=== PATIENT | male | born 1945 | race Caucasian/White ===

== ENCOUNTER 2022-08-10 14:32 | Inpatient (IN) ==
[2022-08-10 15:57] LABS: Basophils % 0.2 % (0.0-0.8); Eosinophils # 0.1 10*3/uL (0.0-0.87); Eosinophils % 0.8 % (0.00-10.9); Hematocrit 24.2 VOL% (42.0-52.0); Hemoglobin 8.3 GM/DL (14.0-18.0); Immature Granulocytes % 0.5 %; Immature Granulocytes Absolute 0.04 #; Lymphocytes # 1.5 10*3/uL (1.4-4.0); Lymphocytes % 16.8 % (21.2-54.2); Mean Corpuscular HGB Conc 34.3 GM/DL (32-36); Mean Platelet Volume 10.9 FL (9.6-12.0); Monocytes # 0.6 10*3/uL (0.11-0.8); Monocytes % 6.7 % (1.7-12.7); Platelet Count 160 T/CUMM (130-400); Red Blood Count 2.52 MC/CUMM (3.8-5.5); Red Cell Distribution Width 22.4 % (9.3-17.3); White Blood Count 8.8 T/CUMM (4-12)
[2022-08-10 16:20] LABS: Albumin 1.4 G/DL (3.4-5.0); Bilirubin,Total 10.3 MG/DL (0.20-1.00); Calcium 8.5 MG/DL (8.5-10.1); Osmolality,Calculated 268.4 MOS/KG (273-304); Potassium 3.9 MMOL/L (3.5-5.1); Total Protein 6.4 G/DL (6.4-8.2)
[2022-08-10 17:24] LABS: Bacteria,Urine Occasional /HPF (Few); Bilirubin,Urine Moderate mg/dL (Negative); Blood, Urine Negative (Negative); Glucose,Urine (UA) Negative (Negative); Hyaline Casts,Urine 13 /LPF (0-3); Ketones,Urine 5 mg/dL (Negative); Mucus,Urine Moderate /LPF (Occasional); Nitrite,Urine Negative (Negative); Protein,Urine 30 mg/dL (Negative); RBC,Urine 1 /HPF (0-4); Squamous Epithelial Cell,Urine Occasional /HPF (0-10); Urine Appearance CLEAR (Clear); Urine Color Amber (Yellow); Urine Specific Gravity 1.021 (1.001-1.035)
[2022-08-10 19:07] LABS: INR 1.3; PT Patient Result 14.6 SECS (10.1-12.1)
[2022-08-10 20:51] LABS: Burr Cells 1+
[2022-08-10 20:52] LABS: Target Cells 1+
[2022-08-10 20:53] LABS: Anisocytosis 1+; Platelet Estimate Normal
[2022-08-10] MEDS: ENOXAPARIN 30 MG/0.3 ML SYRINGE SUBCUT SCH (22:40)
[2022-08-10] MEDS: SODIUM CHLORIDE 0.9% 1,000 ML IV SCH (22:40)
[2022-08-10] MEDS: METOPROLOL SUCCINATE XL 25 MG TABLET PO SCH (22:41)
[2022-08-10] MEDS: PANTOPRAZOLE 40 MG TABLET PO SCH (22:43)
[2022-08-11 06:03] LABS: Basophils % 0.4 % (0.0-0.8); Eosinophils # 0.1 10*3/uL (0.0-0.87); Eosinophils % 1.7 % (0.00-10.9); Hematocrit 22.5 VOL% (42.0-52.0); Hemoglobin 7.8 GM/DL (14.0-18.0); Immature Granulocytes % 0.5 %; Immature Granulocytes Absolute 0.04 #; Lymphocytes # 1.3 10*3/uL (1.4-4.0); Lymphocytes % 15.6 % (21.2-54.2); Mean Corpuscular HGB Conc 34.7 GM/DL (32-36); Mean Corpuscular Volume 95.7 FL (87-102); Mean Platelet Volume 10.5 FL (9.6-12.0); Monocytes # 0.7 10*3/uL (0.11-0.8); Neutrophils % 73.8 % (38.7-73.9); Platelet Count 145 T/CUMM (130-400); Red Blood Count 2.35 MC/CUMM (3.8-5.5); White Blood Count 8.1 T/CUMM (4-12)
[2022-08-11 06:28] LABS: Albumin 1.2 G/DL (3.4-5.0); Bilirubin,Total 9.2 MG/DL (0.20-1.00); Calcium 8.2 MG/DL (8.5-10.1); Osmolality,Calculated 274.8 MOS/KG (273-304); Potassium 4.1 MMOL/L (3.5-5.1); Risk Ratio 8.5; Total Protein 5.8 G/DL (6.4-8.2); VLDL Cholesterol 19.8 MG/DL
[2022-08-11 07:01] LABS: Hepatitis B Surface Ab Result Non-Reactive (NonReactive); Hepatitis C Virus Ab Quant 0.08 Index; Hepatitis C Virus Ab Result Non-Reactive (NonReactive)
[2022-08-11] MEDS: METOPROLOL SUCCINATE XL 25 MG TABLET PO SCH ×2 (10:20→21:00)
[2022-08-11] MEDS: PANTOPRAZOLE 40 MG TABLET PO SCH (10:20)
[2022-08-11] MEDS: cefTRIAXone 1,000 MG in SODIUM CHLORIDE 0.9% 100 ML IV SCH (17:30)
[2022-08-11] MEDS: SODIUM CHLORIDE 0.9% 1,000 ML IV SCH (17:40)
[2022-08-11] MEDS: ENOXAPARIN 30 MG/0.3 ML SYRINGE SUBCUT SCH (21:03)
[2022-08-12 06:48] LABS: Basophils % 0.4 % (0.0-0.8); Eosinophils # 0.2 10*3/uL (0.0-0.87); Eosinophils % 2.7 % (0.00-10.9); Hematocrit 20.3 VOL% (42.0-52.0); Immature Granulocytes % 0.4 %; Immature Granulocytes Absolute 0.03 #; Lymphocytes # 1.2 10*3/uL (1.4-4.0); Lymphocytes % 15.8 % (21.2-54.2); Mean Corpuscular HGB Conc 34.5 GM/DL (32-36); Mean Platelet Volume 10.5 FL (9.6-12.0); Monocytes # 0.6 10*3/uL (0.11-0.8); Monocytes % 8.1 % (1.7-12.7); Neutrophils % 72.6 % (38.7-73.9); Platelet Count 140 T/CUMM (130-400); Red Blood Count 2.16 MC/CUMM (3.8-5.5); Red Cell Distribution Width 22.2 % (9.3-17.3); White Blood Count 7.7 T/CUMM (4-12)
[2022-08-12] MEDS: SODIUM CHLORIDE 0.9% 1,000 ML IV SCH ×3 (08:00→12:58)
[2022-08-12] MEDS: METOPROLOL SUCCINATE XL 25 MG TABLET PO SCH ×2 (08:00→21:21)
[2022-08-12] MEDS: PANTOPRAZOLE 40 MG TABLET PO SCH (08:01)
[2022-08-12 10:58] LABS: Calcium 7.4 MG/DL (8.5-10.1); Osmolality,Calculated 269.2 MOS/KG (273-304)
[2022-08-12] MEDS ORDERED: SODIUM CHLORIDE 0.9% 1,000 ML IV PRN (11:27)
[2022-08-12 19:54] LABS: Hematocrit 32.3 VOL% (42.0-52.0)
[2022-08-12 19:56] LABS: Hemoglobin 10.7 GM/DL (14.0-18.0)
[2022-08-12] MEDS: cefTRIAXone 1,000 MG in SODIUM CHLORIDE 0.9% 100 ML IV SCH (21:22)
[2022-08-12] MEDS: ENOXAPARIN 30 MG/0.3 ML SYRINGE SUBCUT SCH (21:25)
[2022-08-13 06:20] LABS: Basophils # 0.1 10*3/uL (0.0-0.2); Basophils % 0.6 % (0.0-0.8); Eosinophils # 0.2 10*3/uL (0.0-0.87); Hemoglobin 10.4 GM/DL (14.0-18.0); Immature Granulocytes % 0.5 %; Immature Granulocytes Absolute 0.04 #; Lymphocytes # 1.4 10*3/uL (1.4-4.0); Lymphocytes % 17.8 % (21.2-54.2); Mean Corpuscular HGB Conc 34.7 GM/DL (32-36); Mean Platelet Volume 10.7 FL (9.6-12.0); Monocytes # 0.5 10*3/uL (0.11-0.8); Monocytes % 6.5 % (1.7-12.7); Neutrophils % 72.6 % (38.7-73.9); Platelet Count 147 T/CUMM (130-400); Red Blood Count 3.26 MC/CUMM (3.8-5.5); Red Cell Distribution Width 21.6 % (9.3-17.3); White Blood Count 7.8 T/CUMM (4-12)
[2022-08-13] MEDS ORDERED: INDOMETHACIN SUPP 50 MG SUPP RECTAL ONE (06:20)
[2022-08-13 06:43] LABS: Albumin 1.2 G/DL (3.4-5.0); Bilirubin,Total 9.9 MG/DL (0.20-1.00); Calcium 7.8 MG/DL (8.5-10.1); Osmolality,Calculated 273.8 MOS/KG (273-304); Potassium 4.1 MMOL/L (3.5-5.1)
[2022-08-13] MEDS ORDERED: fentaNYL 100 MCG/2 ML VIAL ONE (07:30)
[2022-08-13] MEDS ORDERED: propofoL 200 MG/20 ML VIAL IV ONE (07:31)
[2022-08-13] MEDS ORDERED: ROCURONIUM 50 MG/5 ML VIAL IV ONE (07:31)
[2022-08-13] MEDS ORDERED: SUCCINYLCHOLINE 200 MG/10 ML VIAL ONE (07:31)
[2022-08-13] MEDS ORDERED: LIDOCAINE 2% 5 ML VIAL ONE (07:31)
[2022-08-13] MEDS ORDERED: SEVOFLURANE 1 UNIT/15 MINUTE INH ONE ×3 (07:31→09:42)
[2022-08-13] MEDS ORDERED: ONDANSETRON 4 MG/2 ML VIAL ONE (07:31)
[2022-08-13] MEDS: LACTATED RINGERS 1,000 ML IV SCH (07:33)
[2022-08-13 07:53] LABS: INR 1.5; PT Patient Result 15.8 SECS (10.1-12.1)
[2022-08-13] MEDS ORDERED: ePHEDrine 50 MG/ML VIAL ONE (08:46)
[2022-08-13] MEDS ORDERED: PROMETHAZINE INJ 12.5 MG in SODIUM CHLORIDE 0.9% 50 ML IV ONE (13:00)
[2022-08-13] MEDS: PANTOPRAZOLE 40 MG TABLET PO SCH (16:53)
[2022-08-13] MEDS: METOPROLOL SUCCINATE XL 25 MG TABLET PO SCH ×2 (16:53→21:11)
[2022-08-13] MEDS: cefTRIAXone 1,000 MG in SODIUM CHLORIDE 0.9% 100 ML IV SCH (21:10)
[2022-08-13] MEDS: ENOXAPARIN 30 MG/0.3 ML SYRINGE SUBCUT SCH (21:11)
[2022-08-14 05:17] LABS: Basophils % 0.3 % (0.0-0.8); Eosinophils # 0.1 10*3/uL (0.0-0.87); Eosinophils % 1.7 % (0.00-10.9); Hematocrit 30.5 VOL% (42.0-52.0); Hemoglobin 10.5 GM/DL (14.0-18.0); Immature Granulocytes % 0.4 %; Immature Granulocytes Absolute 0.03 #; Lymphocytes # 1.1 10*3/uL (1.4-4.0); Lymphocytes % 15.6 % (21.2-54.2); Mean Corpuscular HGB Conc 34.4 GM/DL (32-36); Mean Corpuscular Volume 93.3 FL (87-102); Mean Platelet Volume 10.2 FL (9.6-12.0); Monocytes # 0.4 10*3/uL (0.11-0.8); Monocytes % 6.1 % (1.7-12.7); Neutrophils % 75.9 % (38.7-73.9); Platelet Count 132 T/CUMM (130-400); Red Blood Count 3.27 MC/CUMM (3.8-5.5); Red Cell Distribution Width 22.2 % (9.3-17.3); White Blood Count 7.2 T/CUMM (4-12)
[2022-08-14 05:42] LABS: Albumin 1.1 G/DL (3.4-5.0); Bilirubin,Total 8.8 MG/DL (0.20-1.00); Calcium 8.1 MG/DL (8.5-10.1); Osmolality,Calculated 275.8 MOS/KG (273-304); Potassium 3.8 MMOL/L (3.5-5.1); Total Protein 5.9 G/DL (6.4-8.2)
[2022-08-14] MEDS: PANTOPRAZOLE 40 MG TABLET PO SCH (09:00)
[2022-08-14] MEDS: METOPROLOL SUCCINATE XL 25 MG TABLET PO SCH ×2 (09:00→20:30)
[2022-08-14 11:48] LABS: Neutrophils,Peritoneal Fluid 20 %; RBC,Peritoneal Fluid 101 T/CUMM
[2022-08-14] MEDS ORDERED: diphenhydrAMINE CAP 25 MG CAPSULE PO PRN (12:16)
[2022-08-14] MEDS: LACTATED RINGERS 1,000 ML IV SCH (15:30)
[2022-08-14] MEDS: cefTRIAXone 1,000 MG in SODIUM CHLORIDE 0.9% 100 ML IV SCH (20:30)
[2022-08-14] MEDS: ENOXAPARIN 30 MG/0.3 ML SYRINGE SUBCUT SCH (20:33)
[2022-08-15 05:29] LABS: Basophils # 0.1 10*3/uL (0.0-0.2); Basophils % 0.7 % (0.0-0.8); Eosinophils # 0.2 10*3/uL (0.0-0.87); Eosinophils % 2.7 % (0.00-10.9); Hematocrit 29.2 VOL% (42.0-52.0); Hemoglobin 9.9 GM/DL (14.0-18.0); Immature Granulocytes % 0.5 %; Immature Granulocytes Absolute 0.04 #; Lymphocytes # 1.1 10*3/uL (1.4-4.0); Lymphocytes % 14.7 % (21.2-54.2); Mean Corpuscular HGB Conc 33.9 GM/DL (32-36); Mean Corpuscular Volume 93.6 FL (87-102); Mean Platelet Volume 9.7 FL (9.6-12.0); Monocytes # 0.4 10*3/uL (0.11-0.8); Monocytes % 5.6 % (1.7-12.7); Neutrophils % 75.8 % (38.7-73.9); Platelet Count 130 T/CUMM (130-400); Red Blood Count 3.12 MC/CUMM (3.8-5.5); Red Cell Distribution Width 22.1 % (9.3-17.3); White Blood Count 7.3 T/CUMM (4-12)
[2022-08-15 05:57] LABS: Osmolality,Calculated 276.8 MOS/KG (273-304); Potassium 3.7 MMOL/L (3.5-5.1); Total Protein 5.6 G/DL (6.4-8.2)
[2022-08-15] MEDS: PANTOPRAZOLE 40 MG TABLET PO SCH (09:07)
[2022-08-15] MEDS: METOPROLOL SUCCINATE XL 25 MG TABLET PO SCH (09:07)
[2022-08-15] MEDS: LACTATED RINGERS 1,000 ML IV SCH (09:08)
[2022-08-15 11:42] VITALS: BP 104/51
== END 2022-08-15 12:14 | disposition home health service (06) | DRG 435 ==
LOC: N.ED 14:32 → SUATTDRO 19:57 → N.EDINP 19:57 → N.3E 20:21
PROVIDERS: ADMIT Internal Medicine Geriatric Medicine; ATTEND Family Medicine

== ENCOUNTER 2022-09-02 13:58 | Inpatient (IN) ==
[2022-09-02 16:51] LABS: Basophils % 0.6 % (0.0-0.8); Eosinophils # 0.2 10*3/uL (0.0-0.87); Eosinophils % 3.2 % (0.00-10.9); Hematocrit 27.8 VOL% (42.0-52.0); Hemoglobin 9.4 GM/DL (14.0-18.0); Immature Granulocytes % 0.4 %; Immature Granulocytes Absolute 0.03 #; Lymphocytes # 1.2 10*3/uL (1.4-4.0); Lymphocytes % 16.2 % (21.2-54.2); Mean Corpuscular HGB Conc 33.8 GM/DL (32-36); Mean Corpuscular Volume 96.9 FL (87-102); Monocytes # 0.7 10*3/uL (0.11-0.8); Monocytes % 9.7 % (1.7-12.7); Neutrophils % 69.9 % (38.7-73.9); Platelet Count 145 T/CUMM (130-400); Red Blood Count 2.87 MC/CUMM (3.8-5.5); Red Cell Distribution Width 22.8 % (9.3-17.3); White Blood Count 7.1 T/CUMM (4-12)
[2022-09-02] MEDS ORDERED: ONDANSETRON 4 MG/2 ML VIAL IV STA (17:12)
[2022-09-02 17:14] LABS: Albumin 1.6 G/DL (3.4-5.0); Bilirubin,Total 4.6 MG/DL (0.20-1.00); Calcium 8.8 MG/DL (8.5-10.1); Osmolality,Calculated 277.1 MOS/KG (273-304); Potassium 3.9 MMOL/L (3.5-5.1); Total Protein 6.8 G/DL (6.4-8.2)
[2022-09-02 17:30] LABS: Hypochromia 1+; INR 1.2; Partial Thromboplastin Time 27.9 SECS (23.7-32.9); Polychromasia Slight
[2022-09-02 17:31] LABS: Anisocytosis Slight; Platelet Estimate Adequate; Target Cells Few
[2022-09-02] MEDS ORDERED: SODIUM CHLORIDE 0.9% 1,000 ML IV STA (18:08)
[2022-09-02 18:37] LABS: Bilirubin,Urine Small mg/dL (Negative); Glucose,Urine (UA) Negative (Negative); Hyaline Casts,Urine 5 /LPF (0-3); Ketones,Urine Negative (Negative); Mucus,Urine Occasional /LPF (Occasional); Nitrite,Urine Negative (Negative); Protein,Urine Negative (Negative); RBC,Urine 2 /HPF (0-4); Squamous Epithelial Cell,Urine Occasional /HPF (0-10); Urine Appearance Clear (Clear); Urine Color Yellow (Yellow); Urine Specific Gravity 1.025 (1.001-1.035)
[2022-09-02 18:38] LABS: Blood, Urine Negative (Negative)
[2022-09-02] MEDS ORDERED: ONDANSETRON 4 MG/2 ML VIAL IV PRN (19:32)
[2022-09-02] MEDS ORDERED: MORPHINE 2 MG/1 ML SYRINGE IV PRN (19:32)
[2022-09-02] MEDS ORDERED: ENOXAPARIN 40 MG/0.4 ML SYRINGE SUBCUT SCH (21:00)
[2022-09-02] MEDS: LACTULOSE 20 GM/30 ML UDCUP PO SCH (21:41)
[2022-09-02] MEDS: DOCUSATE SODIUM 100 MG CAPSULE PO SCH (21:42)
[2022-09-02] MEDS: SODIUM CHLORIDE 0.9% 1,000 ML IV SCH (21:42)
[2022-09-02] MEDS: RIFAXIMIN 550 MG TABLET PO SCH (21:42)
[2022-09-03] MEDS: LACTULOSE 20 GM/30 ML UDCUP PO SCH ×3 (01:35→08:49)
[2022-09-03] MEDS: SODIUM CHLORIDE 0.9% 1,000 ML IV SCH (04:53)
[2022-09-03] MEDS ORDERED: LEVOTHYROXINE 25 MCG TABLET PO SCH (06:00)
[2022-09-03 06:07] LABS: Folate 7.13 NG/ML (5.38-24.0)
[2022-09-03] MEDS: LEVOTHYROXINE 25 MCG TABLET PO SCH (06:52)
[2022-09-03 07:52] LABS: Basophils # 0.1 10*3/uL (0.0-0.2); Basophils % 0.7 % (0.0-0.8); Eosinophils # 0.3 10*3/uL (0.0-0.87); Eosinophils % 3.8 % (0.00-10.9); Hematocrit 25.4 VOL% (42.0-52.0); Hemoglobin 8.5 GM/DL (14.0-18.0); Immature Granulocytes % 0.3 %; Immature Granulocytes Absolute 0.02 #; Lymphocytes # 1.5 10*3/uL (1.4-4.0); Lymphocytes % 21.9 % (21.2-54.2); Mean Corpuscular HGB Conc 33.5 GM/DL (32-36); Mean Corpuscular Volume 99.6 FL (87-102); Mean Platelet Volume 9.5 FL (9.6-12.0); Monocytes # 0.5 10*3/uL (0.11-0.8); Monocytes % 7.4 % (1.7-12.7); Neutrophils % 65.9 % (38.7-73.9); Platelet Count 141 T/CUMM (130-400); Red Blood Count 2.55 MC/CUMM (3.8-5.5); Red Cell Distribution Width 22.9 % (9.3-17.3); White Blood Count 6.8 T/CUMM (4-12)
[2022-09-03 08:16] LABS: % Iron Saturation 99.3 % (18-50)
[2022-09-03 08:27] LABS: Hypochromia 1+
[2022-09-03 08:28] LABS: Macrocytosis 1+; Ovalocytes Slight; Target Cells Few
[2022-09-03] MEDS: RIFAXIMIN 550 MG TABLET PO SCH ×2 (08:47→21:13)
[2022-09-03] MEDS: DOCUSATE SODIUM 100 MG CAPSULE PO SCH ×2 (08:47→21:13)
[2022-09-03] MEDS: PANTOPRAZOLE 40 MG TABLET PO SCH (08:48)
[2022-09-03 08:51] LABS: Albumin 1.5 G/DL (3.4-5.0); Bilirubin,Total 4.6 MG/DL (0.20-1.00); Calcium 8.6 MG/DL (8.5-10.1); Osmolality,Calculated 282.4 MOS/KG (273-304); Potassium 3.8 MMOL/L (3.5-5.1); Risk Ratio 8.31; Total Protein 6.8 G/DL (6.4-8.2); VLDL Cholesterol 19.2 MG/DL
[2022-09-03] MEDS ORDERED: ATORVASTATIN 80 MG TABLET PO SCH (09:00)
[2022-09-03] MEDS: LACTATED RINGERS 1,000 ML IV SCH ×2 (09:07→17:10)
[2022-09-03 13:40] LABS: Free T4 (Free Thyroxine) 0.47 NG/DL (0.76-1.46)
[2022-09-03] MEDS: HEPARIN 5,000 UNIT/1 ML VIAL SUBCUT SCH (21:14)
[2022-09-03] MEDS: METOPROLOL SUCCINATE XL 25 MG TABLET PO SCH (21:17)
[2022-09-04 05:29] LABS: Basophils % 0.6 % (0.0-0.8); Eosinophils # 0.4 10*3/uL (0.0-0.87); Eosinophils % 5.9 % (0.00-10.9); Hematocrit 22.8 VOL% (42.0-52.0); Hemoglobin 7.7 GM/DL (14.0-18.0); Immature Granulocytes % 0.5 %; Immature Granulocytes Absolute 0.03 #; Lymphocytes # 1.3 10*3/uL (1.4-4.0); Lymphocytes % 19.9 % (21.2-54.2); Mean Corpuscular HGB Conc 33.8 GM/DL (32-36); Mean Corpuscular Volume 98.7 FL (87-102); Mean Platelet Volume 10.1 FL (9.6-12.0); Monocytes # 0.4 10*3/uL (0.11-0.8); Monocytes % 6.7 % (1.7-12.7); Neutrophils % 66.4 % (38.7-73.9); Platelet Count 138 T/CUMM (130-400); Red Blood Count 2.31 MC/CUMM (3.8-5.5); Red Cell Distribution Width 23.3 % (9.3-17.3); White Blood Count 6.3 T/CUMM (4-12)
[2022-09-04 05:49] LABS: Albumin 1.3 G/DL (3.4-5.0); Calcium 8.3 MG/DL (8.5-10.1); Potassium 3.9 MMOL/L (3.5-5.1); Total Protein 5.8 G/DL (6.4-8.2)
[2022-09-04 05:59] LABS: Macrocytosis 1+; Ovalocytes Slight; Platelet Estimate Adequate; Target Cells Few
[2022-09-04] MEDS: LACTATED RINGERS 1,000 ML IV SCH ×2 (06:04→09:10)
[2022-09-04] MEDS: LEVOTHYROXINE 25 MCG TABLET PO SCH (06:05)
[2022-09-04 07:29] VITALS: BP 116/99
[2022-09-04] MEDS ORDERED: POLYETHYLENE GLYCOL POWDER 17 GM PACK PO SCH (09:00)
[2022-09-04] MEDS: METOPROLOL SUCCINATE XL 25 MG TABLET PO SCH (09:04)
[2022-09-04] MEDS: RIFAXIMIN 550 MG TABLET PO SCH (09:04)
[2022-09-04] MEDS: DOCUSATE SODIUM 100 MG CAPSULE PO SCH (09:04)
[2022-09-04] MEDS: PANTOPRAZOLE 40 MG TABLET PO SCH (09:04)
[2022-09-04] MEDS: HEPARIN 5,000 UNIT/1 ML VIAL SUBCUT SCH (09:07)
[2022-09-04 10:48] LABS: Mucus,Urine Occasional /LPF (Occasional); RBC,Urine 1 /HPF (0-4); Squamous Epithelial Cell,Urine Occasional /HPF (0-10)
[2022-09-04 10:54] LABS: Bilirubin,Urine Moderate mg/dL (Negative); Blood, Urine Negative (Negative); Glucose,Urine (UA) Negative (Negative); Ketones,Urine Trace mg/dL (Negative); Nitrite,Urine Negative (Negative); Protein,Urine Negative (Negative); Urine Appearance Clear (Clear); Urine Color Amber (Yellow); Urine Specific Gravity > 1.030 (1.001-1.035); Urine pH 5.5 (4.5-8.0)
== END 2022-09-04 13:49 | disposition home or self-care (01) | DRG 438 ==
LOC: N.ED 13:58 → SUATTDRO 19:32 → N.EDINP 19:32 → N.3E 21:22
PROVIDERS: ADMIT Internal Medicine; ATTEND Internal Medicine